=== PATIENT | male | born 1980 ===

== ENCOUNTER 2023-03-19 16:09 | Emergency (ER) | payer MEDICAID ==
[~2023-03-19] VITALS: Ht 180.3 cm; Wt 90.7 kg
[2023-03-19 20:31] VITALS: BP 128/94; TEMP 98.6; O2SAT 100
== END 2023-03-19 20:32 | disposition home or self-care (01) ==
LOC: ER 16:09
DX: J02.9 Acute pharyngitis, unspecified (principal); R05.9 Cough, unspecified; I51.7 Cardiomegaly; I50.9 Heart failure, unspecified; E11.9 Type 2 diabetes mellitus without complications; Z87.891 Personal history of nicotine dependence; Z20.822 Contact with and (suspected) exposure to COVID-19
CPT/HCPCS: 71045; A4606; A4663